=== PATIENT | male | born 1965 | race Caucasian/White ===

== ENCOUNTER 2018-07-10 05:32 | Day surgery (SDC) | payer OTHER ==
[~2018-07-10] VITALS: Ht 188 cm; Wt 89.9 kg
--- NOTE | ~2018-07-10 | O ---
[facility] [place] [address] OPERATIVE REPORT Name: STELLA HARDY [place] Room #: 150-6 [facility]#: [id number] Admission: 07/10/18 ������������������ Attend Phys: Maged Gomez MD Discharge: ������������������ Date of : 65 Report #: [id number] THIS REPORT FOR: //name// CC: Maged Arceo MD DATE OF SERVICE: 07/10/2018 PREOPERATIVE DIAGNOSES: 1. Right inguinal hernia. 2. Umbilical hernia. POSTOPERATIVE DIAGNOSES: 1. Large right indirect inguinal hernia. 2. Umbilical hernia. PROCEDURES PERFORMED: 1. Laparoscopic repair of right indirect inguinal hernia with mesh. 2. Open repair of umbilical hernia with mesh. SURGEON: Maged Gomez M.D. ANESTHESIA: General anesthesia. COMPLICATIONS: None. ESTIMATED BLOOD LOSS: 10 mL. DESCRIPTION OF PROCEDURE: With the patient under general anesthesia, IV antibiotic was administered. Evans catheter was placed. Abdomen was prepped and draped in sterile fashion. Timeout was performed. A 0.25% Marcaine was used to anesthetize the skin adjacent to the umbilicus. A transverse incision was made adjacent to the umbilicus, carried from the right side of the umbilicus into the umbilicus. Anterior rectus sheath was identified. The anterior rectus sheath was incised transversely. The muscle was spread along the length of its fiber. The space between the rectus muscle and the posterior sheath was dissected bluntly. A balloon trocar was placed at the same space. CO2 was placed. A 5-mm trocar was placed about 2 inches beneath the umbilicus. This was placed under visualization into the properitoneal space. Properitoneal space was then opened up with cautery and blunt dissection. There was no direct defect. The patient's abdominal wall was free lateral to the inferior epigastric artery. A second 5-mm trocar was placed here. The patient was found to have a large indirect hernia sac, which was gradually reduced from the cord. Most of the hernia sac was reduced. I then went ahead and divided the end of the hernia sac. The proximal part of the hernia sac was then tied with 0 PDS [facility] [address] [place] [address] OPERATIVE REPORT Name: STELLA HARDY Room #: 150-6 [facility]#: [id number] Admission: 07/10/18 ������������������ Attend Phys: Maged Gomez MD Discharge: ������������������ Date of : 65 Report #: [id number] Endoloop. The indirect internal ring was identified and noted to be moderately dilated. At this point, a large right-sided 3DMax lightweight mesh was placed. This was placed through the origin of balloon trocar and then opened up. This was seated to cover the internal ring well. The mesh was tacked laterally with SorbaFix. Mesh was tacked inferiorly to the Louie's ligament with SorbaFix and then superomedially to the rectus muscle with Sorbafix. CO2 was then evacuated. Trocars removed. Umbilical hernia was then dissected free. The hernia sac was found and this was opened. There was air in the abdominal cavity and this was released. The hernia sac was then free from the overlying skin, free from the fascia. The hernia sac was then pushed back into the properitoneal space. Properitoneal dissection was then performed. Once the properitoneal space opened up, a small Ventralex patch was placed. This was placed through the fascia defect in the properitoneal space. The Ventralex patch opened up well. Fascia edges were cleaned off and then closed with 0 Prolene horizontal mattress fashion x 2. This incorporated the strap of the Ventralex patch. The strap was then trimmed at the fascial level. Skin of the umbilicus was sewn down to the fascia with 4-0 PDS. Skin was closed with 4-0 PDS running subcuticular fashion. A 5-0 PDS was used to close the two 5-mm trocar sites. Steri-Strip and Band-Aids applied and 4 x 4, OpSite used for the dressing of the umbilicus. The patient was taken to recovery room. ��������������������������������������������� ���������������������������������������� By: ��������������������������������������������� 2217 [id number] Maged Gomez MD /jami
[~2018-07-10 05:32] MED LIST: CHERRY PORT; CIALIS2.5 MG PO; FLEXERIL PO; NAPROSYN500 MG PO; NORCO 5-325 TA1 EACH PO; ONE-A-DAY VIT200 MC1 PO
[2018-07-10 09:57] VITALS: BP 143/88
[2018-07-10] MEDS ORDERED: NORCO 5-325 TA1 EACH PO (13:14)
--- NOTE | 2018-07-10 13:22 | H ---
[facility] [place] [address] HISTORY AND PHYSICAL Name: STELLA HARDY Room #: 150-6 [facility].#: [id number] Admission: 07/10/18 ������������������ Attend Phys: Maged Gomez MD Discharge: ������������������ Date of : 65 Report #: [id number] THIS REPORT FOR: //name// CC: Maged Arceo MD DATE OF SERVICE: 07/10/2018 PREOPERATIVE DIAGNOSES: Right inguinal hernia and umbilical hernia. HISTORY OF PRESENT ILLNESS: The patient is a 52-year-old who recently noticed a right inguinal hernia. Complains of soreness, uncomfortableness. The patient has been told that he had an umbilical hernia at . The patient denies any difficulty urinating, no difficulty with bowel movement, does not do any heavy lifting. No chronic cough. The patient has lost quite a bit of weight, from 300 down to 190, this probably made the hernia more noticeable. The patient was seen in the office, noted to have a large right inguinal hernia, also umbilical hernia present. The patient is recommended to have this repaired. The patient is here for the procedure. 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 The patient denies heart disease, denies diabetes. He has mild hypertension. No lung disease, no kidney disease, no liver disease, no bleeding disorder, no history of blood clot. PRIOR SURGICAL HISTORY: None. MEDICATIONS: None. ALLERGIES: None. FAMILY HISTORY: There is cancer that runs in the family. Mother is alive at age 90 with Alzheimer's. 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 He does not smoke, but chews tobacco. The patient does drink beer. REVIEW OF SYSTEMS: He has bad foot. No chest pain, shortness of breath or palpitations. PHYSICAL EXAMINATION: GENERAL: The patient is a well-developed, well-nourished male, in no acute distress. HEENT: Pupils react to light. Extraocular muscles are intact. NECK: Soft and supple, no masses, no JVD. [facility] [address] [place] [address] HISTORY AND PHYSICAL Name: STELLA HARDY Room #: 150-6 [facility]..#: [id number] Admission: 07/10/18 ������������������ Attend Phys: Maged Gomez MD Discharge: ������������������ Date of : 65 Report #: [id number] LUNGS: Clear to auscultation. HEART: Regular rate and rhythm. No murmur or gallop. ABDOMEN: Soft, nondistended, nontender. No mass, guarding, rigidity, no ascites. The patient does have an umbilical hernia present. He has a large right inguinal hernia. Testicles are descended. No hernia detected on the left side. EXTREMITIES: No cyanosis, clubbing or edema. IMPRESSION: The patient with a symptomatic right inguinal hernia and also umbilical hernia present. He was told he had a hernia in the umbilicus since childhood. Recently, he has noticed a bulge on the right groin. He does complain of discomfort, soreness here. The patient does not have any history of complication from the hernia. No history of strangulation or incarceration. The patient is recommended to have the hernias repaired. He is brought in for laparoscopic repair of right inguinal hernia with mesh, repair of umbilical hernia likely with mesh also. The patient wants to proceed. Procedure was discussed. Laparoscopic approach was discussed. Evans catheter will need to be placed. The patient will receive preoperative IV antibiotics. Postop pain, risk of bleeding, infection was discussed. Mesh infection was discussed. Hernia recurrence was discussed. The patient wishes to proceed. ��������������������������������������������� <ELECTRONICALLY SIGNED> ���������������������������������������� By: Maged Gomez MD ��������������������������������������������� 07/10/18 1322 2210 [id number] Maged Gomez MD /nt
[2018-07-10 13:27] VITALS: BP 143/88
--- NOTE | 2018-07-10 16:16 | EKG ---
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 : 1965 Requested By: Maged Gomez Order Number: [id number] MD: Damaso Flynn Measurements Intervals [place] Rate: 75 P: 44 ID: [id number] QRS: 65 QRSD: 102 T: 49 QT: 414 QTc: 463 Interpretive Statements Sinus rhythm Normal tracing No previous ECG available for comparison Electronically Signed On 07-10-2018 16:16:03 DIGITAL CARTOGRAPHIC TECHNICIAN by Damaso Flynn [email or web address] ��������������������������������������������� <ELECTRONICALLY SIGNED> ���������������������������������������� By: Damaso Flynn MD, [facility] ��������������������������������������������� 07/10/18 1616 1008 1008 Damaso Flynn MD, FACC /EPI
== END 2018-07-10 14:25 | disposition home or self-care (01) ==
LOC: OR 05:32 → TBA 05:32 → OR 10:03
DX: K40.90 Unilateral inguinal hernia, without obstruction or gangrene, not specified as recurrent (principal); K42.9 Umbilical hernia without obstruction or gangrene; I10 Essential (primary) hypertension; F17.220 Nicotine dependence, chewing tobacco, uncomplicated
CPT/HCPCS: 50010; 50101; 50119; 50411; 50455; 50507; 50555; 50848; 51297; 51489; 53065; 53307; 56525; 56526; 62110; 62900; 70005

== ENCOUNTER 2020-02-12 11:52 | Emergency (ER) | payer OTHER ==
[~2020-02-12] VITALS: Ht 190.5 cm; Wt 86.2 kg
[2020-02-12] MEDS ORDERED: OXYCODONE HCL5 MG PO (14:32)
[2020-02-12] MEDS ORDERED: KEFLEX500 M1 PO (14:32)
[2020-02-12 14:43] VITALS: BP 154/104
== END 2020-02-12 14:56 | disposition home or self-care (01) ==
LOC: ER 11:52
DX: S42.192A Fracture of other part of scapula, left shoulder, initial encounter for closed fracture (principal); S41.112A Laceration without foreign body of left upper arm, initial encounter; I10 Essential (primary) hypertension; Z79.899 Other long term (current) drug therapy; V29.9XXA Motorcycle rider (driver) (passenger) injured in unspecified traffic accident, initial encounter; Y93.89 Activity, other specified; Y92.89 Other specified places as the place of occurrence of the external cause; Y99.8 Other external cause status

== ENCOUNTER → 2020-07-13 | Outpatient (CLI) | payer OTHER ==
[~2020-07-13] MED LIST changes: +KEFLEX500 M1 PO; +OXYCODONE HCL5 MG PO
== END ==
LOC: ULTRA 10:45
PROVIDERS: ATTEND Neuromusculoskeletal Medicine & OMM
DX: L03.116 Cellulitis of left lower limb (principal)